=== PATIENT | female | born 1980 | race Caucasian/White ===

== ENCOUNTER 2018-05-18 19:14 | Emergency (ER) | payer OTHER, SELFPAY ==
--- NOTE | 2018-05-18 19:52 | ER ---
Nurse's Notes [facility] Name: Eliana Frost Age: 37 yrs Sex: Female : 1980 Arrival Date: 05/18/2018 Time: 19:17 Bed 12 Private MD: Diagnosis: Urinary tract infection, site not specified Presentation: 05/18 19:19 Presenting complaint: Patient states: burning with urination X1 week. Transition of ak1 care: patient was not received from another setting of care. Onset of symptoms is unknown. Risk Assessment: Do you want to hurt yourself or someone else? Patient reports no desire to harm self or others. Initial Sepsis Screen: Does the patient meet any 2 criteria? No. Patient's initial sepsis screen is negative. Does the patient have a suspected source of infection? No. Patient's initial sepsis screen is negative. Care prior to arrival: AZO OTC. 19:19 Method Of Arrival: Ambulatory ak1 19:19 Acuity: SALVADOR 4 ak1 Triage Assessment: 19:21 General: Appears uncomfortable, Behavior is calm, cooperative. 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 - Social history:: Smoking status: Patient uses tobacco products, smokes two packs cigarettes per day. Patient/guardian denies using alcohol. - Ebola Screening: : No symptoms or risks identified at this time. Screenin:29 Abuse screen: Denies threats or abuse. Denies injuries from another. Nutritional aj screening: No deficits noted. Tuberculosis screening: No symptoms or risk factors identified. Fall Risk None identified. Assessment: 19:29 General: Appears in no apparent distress. comfortable, Behavior is calm, cooperative, aj appropriate for age, Smells of Cigarette smoke. Pain: Denies pain. Neuro: Level of Consciousness is awake, alert, obeys commands, Oriented to person, place, time, situation, Appropriate for age. Respiratory: Airway is patent Respiratory effort is even, unlabored, Respiratory pattern is regular, symmetrical. : Reports burning with urination, urinary frequency. Derm: Skin is intact, is healthy with good turgor, Skin is pink, warm \T\ dry. normal. Vital Signs: 19:21 BP 123 / 84; Pulse 83; Resp 18; Temp 98.4(O); Pulse Ox 98% on R/A; Weight 54.43 kg (R); ak1 Height 5 ft. 2 in. (157.48 cm) (R); Pain 8/10; 19:21 Body Mass Index 21.95 (54.43 kg, 157.48 cm) ak1 ED Course: 19:17 Patient arrived in ED. am2 19:20 Triage completed. ak1 19:21 Arm band placed on Patient placed in an exam room, on a stretcher, Patient notified of co1 wait time. 19:23 Nolan Jones MD is Attending Physician. tw4 19:27 Selina Lambert, RN is Primary Nurse. aj 19:29 Patient has correct armband on for positive identification. aj 19:38 Urine Microscopic Only Sent. aj 19:38 Urine collected: clean catch specimen, cloudy. aj 19:55 No provider procedures requiring assistance completed. Patient did not have IV access aj during this emergency room visit. Administered Medications: No medications were administered Outcome: 19:52 Discharge ordered by . tw4 19:55 Discharged to home ambulatory. aj 19:55 Condition: good 19:55 Discharge instructions given to patient, family, Instructed on discharge instructions, follow up and referral plans. medication usage, Demonstrated understanding of instructions, follow-up care, medications, Prescriptions given X 2. 19:55 Patient left the ED. aj Signatures: Selina Lambert RN Delfina Rob RN RN ak1 [facility] Nolan Jones MD MD [email or web address] [[email or web address]]
--- NOTE | 2018-05-18 19:53 | EDPHYS ---
Physician Documentation [facility] Name: Eliana Frost Age: 37 yrs Sex: Female : 1980 Arrival Date: 05/18/2018 Time: 19:17 Bed 12 Private MD: ED Physician Nolan Jones HPI: 05/18 19:49 This 37 yrs old Female presents to ER via Ambulatory with complaints of tw4 Urinary Problem. 19:49 The patient presents with urinary symptoms. Modifying factors: The symptoms are tw4 alleviated by nothing, the symptoms are aggravated by nothing. Associated signs and symptoms: Pertinent positives: dysuria, urinary frequency. Severity of symptoms: last week, At their worst the symptoms were moderate, in the emergency department the symptoms are unchanged. The patient has not experienced similar symptoms in the past. 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 - Social history:: Smoking status: Patient uses tobacco products, smokes two packs cigarettes per day. Patient/guardian denies using alcohol. - Ebola Screening: : No symptoms or risks identified at this time. ROS: 19:49 Positive for urinary symptoms, urinary frequency. tw4 19:49 Eyes: Negative for injury, pain, redness, and discharge, Cardiovascular: Negative for chest pain, palpitations, and edema, Respiratory: Negative for shortness of breath, cough, wheezing, and pleuritic chest pain, Abdomen/GI: Negative for abdominal pain, nausea, vomiting, diarrhea, and constipation. 19:49 : Positive for burning with urination, difficulty urinating. Exam: 19:49 Constitutional: This is a well developed, well nourished patient who is awake, alert, tw4 and in no acute distress. Head/Face: Normocephalic, atraumatic. Chest/axilla: Normal chest wall appearance and motion. Nontender with no deformity. No lesions are appreciated. Cardiovascular: Regular rate and rhythm with a normal S1 and S2. No gallops, murmurs, or rubs. Normal PMI, no JVD. No pulse deficits. Respiratory: Lungs have equal breath sounds bilaterally, clear to auscultation and percussion. No rales, rhonchi or wheezes noted. No increased work of breathing, no retractions or nasal flaring. Abdomen/GI: Soft, non-tender, with normal bowel sounds. No distension or tympany. No guarding or rebound. No evidence of tenderness throughout. Back: No spinal tenderness. No costovertebral tenderness. Full range of motion. MS/ Extremity: Pulses equal, no cyanosis. Neurovascular intact. Full, normal range of motion. Neuro: Awake and alert, GCS 15, oriented to person, place, time, and situation. Cranial nerves II-XII grossly intact. Motor strength 5/5 in all extremities. Sensory grossly intact. Cerebellar exam normal. Normal gait. Vital Signs: 19:21 BP 123 / 84; Pulse 83; Resp 18; Temp 98.4(O); Pulse Ox 98% on R/A; Weight 54.43 kg (R); ak1 Height 5 ft. 2 in. (157.48 cm) (R); Pain 8/10; 19:21 Body Mass Index 21.95 (54.43 kg, 157.48 cm) ak1 MDM: 19:23 Patient medically screened. tw4 19:49 Data reviewed: vital signs, nurses notes. Counseling: I had a detailed discussion with [facility] the patient and/or guardian regarding: the historical points, exam findings, and any diagnostic results supporting the discharge/admit diagnosis. Special discussion: I discussed with the patient/guardian in detail that at this point there is no indication for admission to the hospital. It is understood, however, that if the symptoms persist or worsen the patient needs to return immediately for re-evaluation. 05/18 19:49 Order name: Urine Dipstick--Ancillary (enter results) fc 05/18 19:23 Order name: Urine Dipstick-Ancillary (obtain specimen); Complete Time: 19:40 tw4 05/18 19:23 Order name: Urine Test (obtain specimen); Complete Time: 19:40 tw4 05/18 19:49 Order name: Urine --Ancillary (enter results) fc Administered Medications: No medications were administered Disposition: 05/18/18 19:52 Discharged to Home. Impression: Urinary tract infection, site not specified. - Condition is Stable. - Discharge Instructions: Urinary Tract Infection, Adult. - Prescriptions for Pyridium 200 mg Oral Tablet - take 1 tablet by ORAL route every 8 hours for 3 days; 9 tablet. Macrobid 100 mg Oral Capsule - take 1 capsule by ORAL route every 12 hours for 10 days; 20 capsule. - Medication Reconciliation Form, Thank You Letter, Antibiotic Education, Prescription Opioid Use form. - Follow up: Private Physician; When: Upon discharge from the Emergency Department; Reason: Recheck today's complaints, Continuance of care. - Problem is new. - Symptoms have improved. Signatures: Dispatcher [employer] EDMS Selina Lambert RN RN Delfina Valenzuela RN RN ak1 Nolan Jones MD MD tw4 Corrections: (The following items were deleted from the chart) 19:55 19:52 05/18/2018 19:52 Discharged to Home. Impression: Urinary tract infection, site aj not specified. Condition is Stable. Forms are Medication Reconciliation Form, Thank You Letter, Antibiotic Education, Prescription Opioid Use. Follow up: Private Physician; When: Upon discharge from the Emergency Department; Reason: Recheck today's complaints, Continuance of care. Problem is new. Symptoms have improved. tw4
[2018-05-18 20:18] LABS: Urine Blood 3+ (NEG); Urine Glucose NEGATIVE (NEG); Urine Protein 3+ (NEG); Urine Specific Gravity 1.025 (1.005-1.030)
[2018-05-19 02:31] VITALS: BP 123/84; TEMP 98.4; O2SAT 98
== END 2018-05-18 19:55 | disposition home or self-care (01) ==
LOC: ER 19:14
DX: N39.0 Urinary tract infection, site not specified (principal); F17.210 Nicotine dependence, cigarettes, uncomplicated; Z88.5 Allergy status to narcotic agent
CPT/HCPCS: 81003; 81025; 99283

== ENCOUNTER 2018-06-18 12:29 | Emergency (ER) | payer SELFPAY ==
[2018-06-18] MEDS ORDERED: IPRATROPIUM BROM 0.5MG/2.5ML ONE ×2 (13:22→15:03)
[2018-06-18] MEDS ORDERED: ALBUTEROL 2.5 MG/3 ML NEB SOL ONE ×2 (13:22→15:03)
--- NOTE | 2018-06-18 14:22 | RAD REPORT ---
EXAM DESCRIPTION: Ana Caldwell And [facility]ald (2 Views)06/18/2018 2:02 pm CLINICAL HISTORY: Cough COMPARISON: 2017 FINDINGS: The lungs are hyperaerated. The lungs appear clear of acute infiltrate. The heart is normal size
[2018-06-18] MEDS ORDERED: predniSONE 20 MG TAB ONE (15:03)
--- NOTE | 2018-06-18 15:35 | ER ---
Nurse's Notes [facility] Name: Eliana Frost Age: 37 yrs Sex: Female : 1980 Arrival Date: 06/18/2018 Time: 12:30 Bed 17 Private MD: Diagnosis: Bronchitis, not specified as acute or chronic Presentation: 06/18 12:39 Acuity: SALVADOR 3 sg 16:34 Transition of care: patient was not received from another setting of care. Risk aj1 Assessment: Do you want to hurt yourself or someone else? Patient reports no desire to harm self or others. Initial Sepsis Screen: Does the patient meet any 2 criteria? No. Patient's initial sepsis screen is negative. Does the patient have a suspected source of infection? No. Patient's initial sepsis screen is negative. Care prior to arrival: None. 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 - Social history:: Smoking status: Patient uses tobacco products. - Ebola Screening: : Patient negative for fever greater than or equal to 101.5 degrees Fahrenheit, and additional compatible Ebola Virus Disease symptoms Patient denies exposure to infectious person Patient denies travel to an Ebola-affected area in the 21 days before illness onset No symptoms or risks identified at this time. Screenin:13 Abuse screen: Denies threats or abuse. Denies injuries from another. Nutritional aj1 screening: No deficits noted. Tuberculosis screening: No symptoms or risk factors identified. 16:35 Fall Risk None identified. aj1 Assessment: 13:15 General: Appears in no apparent distress. uncomfortable, Behavior is calm, cooperative, aj1 appropriate for age. Pain: Complains of pain in chest Pain does not radiate. Neuro: Level of Consciousness is awake, alert, obeys commands, Oriented to person, place, time, situation. Cardiovascular: Reports chest pain, shortness of breath, Patient's skin is warm and dry. Rhythm is sinus rhythm. Respiratory: Reports shortness of breath cough that is productive, Airway is patent Respiratory effort is even, unlabored, Respiratory pattern is regular, symmetrical, Breath sounds are coarse bilaterally. Breath sounds with wheezes bilaterally. the patient has mild shortness of breath. GI: No signs and/or symptoms were reported involving the gastrointestinal system. : No signs and/or symptoms were reported regarding the genitourinary system. EENT: No signs and/or symptoms were reported regarding the EENT system. Derm: No signs and/or symptoms reported regarding the dermatologic system. Skin is pink, warm \T\ dry. normal. Musculoskeletal: No signs and/or symptoms reported regarding the musculoskeletal system. Circulation, motion, and sensation intact. 14:30 Reassessment: Patient appears in no apparent distress at this time. No changes from aj1 previously documented assessment. Patient and/or family updated on plan of care and expected duration. Pain level reassessed. Patient is alert, oriented x 3, equal unlabored respirations, skin warm/dry/pink. 15:30 Reassessment: Patient appears in no apparent distress at this time. Patient and/or aj1 family updated on plan of care and expected duration. Pain level reassessed. Patient is alert, oriented x 3, equal unlabored respirations, skin warm/dry/pink. Patient states feeling better. Patient states symptoms have improved. 16:33 Reassessment: Patient appears in no apparent distress at this time. No changes from aj1 previously documented assessment. Patient and/or family updated on plan of care and expected duration. Pain level reassessed. Patient is alert, oriented x 3, equal unlabored respirations, skin warm/dry/pink. Vital Signs: 12:38 Pulse 98; Resp 26; Temp 98.3; Pulse Ox 97% on R/A; Weight 61.23 kg; Pain 6/10; sg 13:13 BP 102 / 70; Pulse 72; Resp 24; Pulse Ox 98% on R/A; aj1 14:30 BP 116 / 79; Pulse 74; Resp 14; Pulse Ox 99% on R/A; aj1 15:30 BP 106 / 71; Pulse 76; Resp 18; Pulse Ox 98% on R/A; aj1 16:34 BP 98 / 48; Pulse 73; Resp 18; Pulse Ox 100% on R/A; aj1 ED Course: 12:30 Patient arrived in ED. as 12:39 Triage completed. sg 12:39 Arm band placed on. sg 12:53 Sharonda Zhou FNP-C is [facility]. kb 12:53 Arturo Templeton MD is Attending Physician. kb 13:00 Ginger Antoine, RN is Primary Nurse. aj1 13:13 Patient has correct armband on for positive identification. Bed in low position. Call aj1 light in reach. Side rails up X 1. 13:13 No provider procedures requiring assistance completed. aj1 14:02 Chest Pa And Lat (2 Views) XRAY In Process Unspecified. EDMS 16:35 Patient did not have IV access during this emergency room visit. aj1 Administered Medications: 13:14 Drug: DuoNeb (3:1) (2.5 mg - 0.5 mg) 3 ml Route: Nebulizer; aj1 16:36 Follow up: Response: No adverse reaction aj1 14:54 Drug: DuoNeb (3:1) (2.5 mg - 0.5 mg) 3 ml Route: Nebulizer; aj1 16:36 Follow up: Response: No adverse reaction aj1 14:55 Drug: predniSONE 40 mg Route: PO; aj1 16:37 Follow up: Response: No adverse reaction aj1 Outcome: 15:34 Discharge ordered by MD. kb 16:39 Discharged to home ambulatory. aj1 16:39 Condition: good 16:39 Discharge instructions given to patient, Instructed on discharge instructions, follow up and referral plans. medication usage, Demonstrated understanding of instructions, follow-up care, medications, Prescriptions given X 2. 16:40 Patient left the ED. aj1 Signatures: Dispatcher [employer] EDID Sharonda Zhou FNP-C FNP-Ckb Ginger Antoine RN RN aj Josse Renteria RN RN sg Martinez, Amelia as Corrections: (The following items were deleted from the chart) 16:33 15:30 Reassessment: Patient appears in no apparent distress at this time. No changes aj1 from previously documented assessment. Patient and/or family updated on plan of care and expected duration. Pain level reassessed. Patient is alert, oriented x 3, equal unlabored respirations, skin warm/dry/pink. aj1
--- NOTE | 2018-06-18 15:35 | EDPHYS ---
Physician Documentation [facility] Name: Eliana Frost Age: 37 yrs Sex: Female : 1980 Arrival Date: 06/18/2018 Time: 12:30 Bed 17 Private MD: ED Physician Arturo Templeton HPI: 06/18 13:56 This 37 yrs old Female presents to ER via Unassigned with complaints of Flu kb Symptoms. 13:56 The patient or guardian reports cough, that is intermittent, described as mild, with no kb sputum, difficulty breathing, flu symptoms, low-grade fever, myalgias. Onset: The symptoms/episode began/occurred 5 day(s) ago. Severity of symptoms: At their worst the symptoms were moderate, in the emergency department the symptoms are unchanged. Modifying factors: The symptoms are alleviated by nothing, the symptoms are aggravated by nothing. Associated signs and symptoms: Pertinent positives: fever, rhinorrhea, sore throat. The patient has not experienced similar symptoms in the past. The patient has not recently seen a physician. 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 - Social history:: Smoking status: Patient uses tobacco products. - Ebola Screening: : Patient negative for fever greater than or equal to 101.5 degrees Fahrenheit, and additional compatible Ebola Virus Disease symptoms Patient denies exposure to infectious person Patient denies travel to an Ebola-affected area in the 21 days before illness onset No symptoms or risks identified at this time. ROS: 13:54 Neck: Negative for injury, pain, and swelling, Cardiovascular: Negative for chest pain, kb palpitations, and edema, Abdomen/GI: Negative for abdominal pain, nausea, vomiting, diarrhea, and constipation, Back: Negative for injury and pain, MS/Extremity: Negative for injury and deformity, Skin: Negative for injury, rash, and discoloration, Neuro: Negative for headache, weakness, numbness, tingling, and seizure. 13:54 Constitutional: Positive for fever, malaise, Negative for body aches, chills, fatigue, poor PO intake, weight loss. 13:54 ENT: Positive for rhinorrhea, sinus congestion, sore throat. 13:54 Respiratory: Positive for cough, shortness of breath, Negative for dyspnea on exertion, hemoptysis, orthopnea, pleurisy, sputum production, wheezing. Exam: 13:54 Constitutional: This is a well developed, well nourished patient who is awake, alert, kb and in no acute distress. Head/Face: Normocephalic, atraumatic. ENT: Nares patent. No nasal discharge, no septal abnormalities noted. Tympanic membranes are normal and external auditory canals are clear. Oropharynx with no redness, swelling, or masses, exudates, or evidence of obstruction, uvula midline. Mucous membranes moist. Neck: Trachea midline, no thyromegaly or masses palpated, and no cervical lymphadenopathy. Supple, full range of motion without nuchal rigidity, or vertebral point tenderness. No Meningismus. Chest/axilla: Normal chest wall appearance and motion. Nontender with no deformity. No lesions are appreciated. Cardiovascular: Regular rate and rhythm with a normal S1 and S2. No gallops, murmurs, or rubs. Normal PMI, no JVD. No pulse deficits. Abdomen/GI: Soft, non-tender, with normal bowel sounds. No distension or tympany. No guarding or rebound. No evidence of tenderness throughout. Skin: Warm, dry with normal turgor. Normal color with no rashes, no lesions, and no evidence of cellulitis. MS/ Extremity: Pulses equal, no cyanosis. Neurovascular intact. Full, normal range of motion. Neuro: Awake and alert, GCS 15, oriented to person, place, time, and situation. Cranial nerves II-XII grossly intact. Motor strength 5/5 in all extremities. Sensory grossly intact. Cerebellar exam normal. Normal gait. 13:54 Respiratory: mild respiratory distress is noted, Respirations: labored breathing, that is mild, Breath sounds: rhonchi, that are moderate, are located in both bases. Vital Signs: 12:38 Pulse 98; Resp 26; Temp 98.3; Pulse Ox 97% on R/A; Weight 61.23 kg; Pain 6/10; sg 13:13 BP 102 / 70; Pulse 72; Resp 24; Pulse Ox 98% on R/A; aj1 14:30 BP 116 / 79; Pulse 74; Resp 14; Pulse Ox 99% on R/A; aj1 15:30 BP 106 / 71; Pulse 76; Resp 18; Pulse Ox 98% on R/A; aj1 16:34 BP 98 / 48; Pulse 73; Resp 18; Pulse Ox 100% on R/A; aj1 MDM: 13:00 Patient medically screened. kb 13:54 Data reviewed: vital signs, nurses notes. Data interpreted: Pulse oximetry: on room air kb is 98 %. Interpretation: normal. 15:33 Counseling: I had a detailed discussion with the patient and/or guardian regarding: the kb historical points, exam findings, and any diagnostic results supporting the discharge/admit diagnosis, lab results, radiology results, the need for outpatient follow up, a family practitioner, to return to the emergency department if symptoms worsen or persist or if there are any questions or concerns that arise at home. 06/18 12:41 Order name: Flu; Complete Time: 13:50 sg 06/18 12:41 Order name: Strep; Complete Time: 13:31 sg 06/18 13:07 Order name: Chest Pa And Lat (2 Views) XRAY; Complete Time: 14:26 kb 06/18 13:30 Order name: Throat Culture EDMS Administered Medications: 13:14 Drug: DuoNeb (3:1) (2.5 mg - 0.5 mg) 3 ml Route: Nebulizer; aj1 16:36 Follow up: Response: No adverse reaction aj1 14:54 Drug: DuoNeb (3:1) (2.5 mg - 0.5 mg) 3 ml Route: Nebulizer; aj1 16:36 Follow up: Response: No adverse reaction aj1 14:55 Drug: predniSONE 40 mg Route: PO; aj1 16:37 Follow up: Response: No adverse reaction aj1 Disposition: 06/18/18 15:34 Discharged to Home. Impression: Bronchitis, not specified as acute or chronic. - Condition is Stable. - Discharge Instructions: Acute Bronchitis, [id number], Viral Respiratory Infection, [id number]. - Prescriptions for Prednisone 20 mg Oral Tablet - take 1 tablet by ORAL route once daily for 5 days; 5 tablet. Albuterol Sulfate 90 mcg/actuation - inhale 1-2 puff by INHALATION route every 4-6 hours; 1 Inhaler. - Medication Reconciliation Form, Thank You Letter, Antibiotic Education, Prescription Opioid Use form. - Follow up: Emergency Department; When: As needed; Reason: Worsening of condition. Follow up: Private Physician; When: 2 - 3 days; Reason: Recheck today's complaints, Continuance of care, Re-evaluation by your physician. Addendum: 06/19/2018 19:02 Co-signature as Attending Physician, Arturo Templeton MD I agree with the assessment and k dr plan of care. Signatures: Dispatcher [employer] EDPR Sharonda Zhou, ELIANE-C FOOD RUNNER-CkGinger Tompkins RN RN aj1 Josse Renteria RN RN sg Arturo Templeton MD MD kdr Corrections: (The following items were deleted from the chart) 06/18 16:40 15:34 06/18/2018 15:34 Discharged to Home. Impression: Bronchitis, not specified as aj1 acute or chronic. Condition is Stable. Forms are Medication Reconciliation Form, Thank You Letter, Antibiotic Education, Prescription Opioid Use. Follow up: Emergency Department; When: As needed; Reason: Worsening of condition. Follow up: Private Physician; When: 2 - 3 days; Reason: Recheck today's complaints, Continuance of care, Re-evaluation by your physician. kb
[2018-06-18 17:52] VITALS: TEMP 98.3
[2018-06-18 17:56] VITALS: BP 98/48; O2SAT 100
== END 2018-06-18 16:40 | disposition home or self-care (01) ==
LOC: ER 12:29
DX: J40 Bronchitis, not specified as acute or chronic (principal); Z72.0 Tobacco use; Z88.5 Allergy status to narcotic agent
CPT/HCPCS: 71046; 87070; 87081; 87804; 94640; 99284; J7512

== ENCOUNTER 2019-07-28 | Emergency (ER) | payer SELFPAY | END 2019-07-28 21:25 | disposition home or self-care (01) | CPT/HCPCS: 74176; 81003; 81015; 81025; 87086; 87088; 96374; 96375; 99284; J1100; J2175 ==

== ENCOUNTER 2019-09-14 19:07 | Emergency (ER) | payer SELFPAY ==
[2019-09-14 20:46] LABS: Urine Blood 1+ (NEG); Urine Glucose NEGATIVE (NEG); Urine Protein TRACE (NEG); Urine Specific Gravity 1.025 (1.005-1.030)
[2019-09-14] MEDS ORDERED: CEFTRIAXONE 1000 MG/VIAL ONE (21:16)
[2019-09-14] MEDS ORDERED: LIDOCAINE 1% MPF 2 ML AMPULE ONE (21:17)
[2019-09-14] MEDS ORDERED: WATER FOR INJ,STERILE 10 ML ONE (21:17)
[2019-09-14 21:49] VITALS: BP 106/81; TEMP 97.5; O2SAT 100
--- NOTE | 2019-09-20 13:45 | ER ---
Nurse's Notes [facility] Name: Eliana Frost Age: 38 yrs Sex: Female : 1980 Arrival Date: 09/14/2019 Time: 19:10 Bed 5 Private MD: Diagnosis: Urinary tract infection, site not specified Presentation: 09/13 19:16 Chief complaint: Patient states: left flank pain since yesterday and burning mg2 micturition since last week. Coronavirus screen: Proceed with normal triage. Patient denies a cough. Patient denies shortness of breath or difficulty breathing. Patient denies measured and/or subjective temperature greater than 100.4F prior to today's visit. Patient denies travel on a cruise ship or to a country the [facility] currently lists as an affected area. Patient denies contact with known and/or suspected case of COVID-19. Ebola Screen: No symptoms or risks identified at this time. Initial Sepsis Screen: Does the patient meet any 2 criteria? No. Patient's initial sepsis screen is negative. Does the patient have a suspected source of infection? No. Patient's initial sepsis screen is negative. Risk Assessment: Do you want to hurt yourself or someone else? Patient reports no desire to harm self or others. Onset of symptoms was August 2019. 19:16 Method Of Arrival: Ambulatory mg2 19:16 Acuity: SALVADOR 3 mg2 Historical: - Allergies: 19:19 Tramadol HCl; mg2 - Home Meds: 19:19 None [Active]; mg2 - PMHx: 19:19 Bipolar disorder; mg2 - PSHx: 19:19 Tubal ligation; mg2 - Immunization history:: Flu vaccine is not up to date. - Social history:: Smoking status: Patient reports the use of cigarette tobacco products, smokes one-half pack cigarettes per day, Patient/guardian denies using alcohol, street drugs, IV drugs. Screenin:32 Abuse screen: Denies threats or abuse. Nutritional screening: No deficits noted. ea Tuberculosis screening: No symptoms or risk factors identified. Fall Risk None identified. Assessment: 21:15 General: Appears in no apparent distress. Behavior is calm, cooperative, appropriate ea for age. Pain: Denies pain. Neuro: Level of Consciousness is awake, alert, obeys commands, Oriented to person, place, time, situation. Derm: Skin is pink, warm \T\ dry. 21:34 Reassessment: Patient and/or family updated on plan of care and expected duration. Pain ea level reassessed. Patient is alert, oriented x 3, equal unlabored respirations, skin warm/dry/pink. Discharge instruction given to patient, verbalized the understanding of instruction. Pt left ED ambulatory tolerating well. Vital Signs: 19:16 BP 106 / 81; Pulse 79; Resp 18; Temp 97.5; Pulse Ox 100% on R/A; Weight 63.5 kg; Height mg2 5 ft. 2 in. (157.48 cm); Pain 7/10; 19:16 Body Mass Index 25.61 (63.50 kg, 157.48 cm) mg2 ED Course: 19:10 Patient arrived in ED. cl3 19:18 Triage completed. mg2 19:19 Arm band placed on. mg2 20:38 Peyman Cardoso NP is PHCP. pm1 20:38 Khurram Wood MD is Attending Physician. pm1 21:04 Carlyle Yu, WADE is Primary Nurse. rv 21:32 Allergy band placed. Bed in low position. Call light in reach. Side rails up X2. ea 21:34 No provider procedures requiring assistance completed. Patient did not have IV access ea during this emergency room visit. Administered Medications: 21:10 Drug: Rocephin (cefTRIAXone) 1 grams Route: IM; Site: right gluteus; rv 21:35 Follow up: Response: No adverse reaction ea Outcome: 20:59 Discharge ordered by MD. pm1 21:35 Discharged to home ambulatory. ea 21:35 Condition: stable 21:35 Discharge instructions given to patient, Instructed on discharge instructions, follow up and referral plans. medication usage, Demonstrated understanding of instructions, follow-up care, medications, Prescriptions given X 2. 21:35 Patient left the ED. ea Signatures: Peyman Cardoso NP FOOD PRODUCT INSPECTOR pm1 Sylvia Farooq RN RN ea Gardose, Michele, RN RN [facility] Carlyle Yu RN RN rv Lewis, Charde cl3
--- NOTE | 2019-09-20 13:45 | EDPHYS ---
Physician Documentation [facility] Name: Eliana Frost Age: 38 yrs Sex: Female : 1980 Arrival Date: 09/14/2019 Time: 19:10 Bed 5 Private MD: ED Physician Khurram Wood HPI: 09/13 20:58 This 38 yrs old Female presents to ER via Ambulatory with complaints of pm1 Burning with urination. 20:58 The patient presents with flank pain, on the left, urinary symptoms, burning with pm1 urination. Onset: The symptoms/episode began/occurred yesterday. Modifying factors: The symptoms are alleviated by nothing, the symptoms are aggravated by urinating. Associated signs and symptoms: Pertinent negatives: fever, vaginal discharge, abdominal pain. Severity of symptoms: in the emergency department the symptoms are unchanged. The patient has experienced similar episodes in the past, a few times. The patient has not recently seen a physician. Historical: - Allergies: 19:19 Tramadol HCl; mg2 - Home Meds: 19:19 None [Active]; mg2 - PMHx: 19:19 Bipolar disorder; mg2 - PSHx: 19:19 Tubal ligation; mg2 - Immunization history:: Flu vaccine is not up to date. - Social history:: Smoking status: Patient reports the use of cigarette tobacco products, smokes one-half pack cigarettes per day, Patient/guardian denies using alcohol, street drugs, IV drugs. ROS: 20:58 Positive for flank pain, burning with urination. pm1 20:58 Constitutional: Negative for fever, chills, and weight loss, Cardiovascular: Negative for chest pain, palpitations, and edema, Respiratory: Negative for shortness of breath, cough, wheezing, and pleuritic chest pain, Abdomen/GI: Negative for abdominal pain, nausea, vomiting, diarrhea, and constipation. 20:58 Neuro: Negative for headache, weakness, numbness, tingling, and seizure. 20:58 Back: Positive for flank pain, on the left. Exam: 20:58 Constitutional: This is a well developed, well nourished patient who is awake, alert, pm1 and in no acute distress. Head/Face: Normocephalic, atraumatic. Chest/axilla: Normal chest wall appearance and motion. Nontender with no deformity. No lesions are appreciated. Cardiovascular: Regular rate and rhythm with a normal S1 and S2. No gallops, murmurs, or rubs. Normal PMI, no JVD. No pulse deficits. Respiratory: Lungs have equal breath sounds bilaterally, clear to auscultation and percussion. No rales, rhonchi or wheezes noted. No increased work of breathing, no retractions or nasal flaring. Abdomen/GI: Soft, non-tender, with normal bowel sounds. No distension or tympany. No guarding or rebound. No evidence of tenderness throughout. Back: No spinal tenderness. No costovertebral tenderness. Full range of motion. Skin: Warm, dry with normal turgor. Normal color with no rashes, no lesions, and no evidence of cellulitis. MS/ Extremity: Pulses equal, no cyanosis. Neurovascular intact. Full, normal range of motion. 20:58 Neuro: Exam negative for acute changes, Orientation: is normal, Motor: is normal, moves all fours, strength is normal, strength is 5/5 in all extremities. Vital Signs: 19:16 BP 106 / 81; Pulse 79; Resp 18; Temp 97.5; Pulse Ox 100% on R/A; Weight 63.5 kg; Height mg2 5 ft. 2 in. (157.48 cm); Pain 7/10; 19:16 Body Mass Index 25.61 (63.50 kg, 157.48 cm) mg2 MDM: 20:44 Patient medically screened. pm1 20:58 Data reviewed: vital signs. Data interpreted: Pulse oximetry: on room air is 100 %. pm1 Interpretation: normal. Counseling: I had a detailed discussion with the patient and/or guardian regarding: the historical points, exam findings, and any diagnostic results supporting the discharge/admit diagnosis, lab results. 09/13 19:48 Order name: Urine Dipstick--Ancillary (enter results) ar5 09/13 19:48 Order name: Urine --Ancillary (enter results) ar5 Administered Medications: 21:10 Drug: Rocephin (cefTRIAXone) 1 grams Route: IM; Site: right gluteus; rv 21:35 Follow up: Response: No adverse reaction ea Disposition: 09/14 06:51 Co-signature as Attending Physician, Khurram Wood MD. ma2 Disposition: 09/14/19 20:59 Discharged to Home. Impression: Urinary tract infection, site not specified. - Condition is Stable. - Discharge Instructions: Urinary Tract Infection, Adult. - Prescriptions for Tylenol- Codeine #3 300-30 mg Oral Tablet - take 2 tablets by ORAL route every 6 hours As needed; 20 tablet. Bactrim DS 800- 160 mg Oral Tablet - take 1 tablet by ORAL route every 12 hours for 10 days; 20 tablet. - Medication Reconciliation Form, Thank You Letter, Antibiotic Education, Prescription Opioid Use form. - Follow up: Emergency Department; When: As needed; Reason: Worsening of condition. Follow up: Private Physician; When: 2 - 3 days; Reason: Recheck today's complaints, Continuance of care, Re-evaluation by your physician. - Problem is new. - Symptoms have improved. Signatures: Dispatcher [employer] EDMS Peyman Cardoso, VINOD VEHICLE DISMANTLER pm1 Sylvia Farooq RN RN ea Alzahri, Mohammad, MD MD ma2 Brandt Sierra RN RN [facility] Carlyle Yu RN RN rv Corrections: (The following items were deleted from the chart) 09/13 21:35 20:59 09/14/2019 20:59 Discharged to Home. Impression: Urinary tract infection, site ea not specified. Condition is Stable. Forms are Medication Reconciliation Form, Thank You Letter, Antibiotic Education, Prescription Opioid Use. Follow up: Emergency Department; When: As needed; Reason: Worsening of condition. Follow up: Private Physician; When: 2 - 3 days; Reason: Recheck today's complaints, Continuance of care, Re-evaluation by your physician. Problem is new. Symptoms have improved. pm1
== END 2019-09-14 21:35 | disposition home or self-care (01) ==
LOC: ER 19:07
DX: N39.0 Urinary tract infection, site not specified (principal); F17.210 Nicotine dependence, cigarettes, uncomplicated; Z88.5 Allergy status to narcotic agent
CPT/HCPCS: 81003; 81025; 96372; 99283; J2001

== ENCOUNTER 2024-03-20 23:29 | Emergency (ER) | payer SELFPAY ==
--- OUTSIDE RECORDS SUMMARY | 2024-03-20 23:31 | XMS REPORT | Continuity of Care Document ---
Author Name Unknown Address [address] [place] [address] [facility] Address [address] [place] [address] Care Team Providers Care Terminal Clerk Name Role Phone Toney Abraham Attending Clinician Unavailable SWETHA FINNEGAN Attending Clinician Winter vailable Physician, No Primary or Family Admitting Clinic jin Unavailable Payers Payer Name Policy Type Policy Number Effective Date Expirati on Date Source Allergies, Adverse Reactions, Alerts Allergy Name Allergy Type Status Severity Reaction(s) Onset Date Inactive Date Treating Clinician Comments Source No Known Allergie s DA Active U 10-02 00:00: 00 [facility] Encounters Start Date/Time End Date/Time Encounter Type Admission Type Attending Clinicians Care Facility Care Department Encounter ID Source 2022-10-07 23:44:00 2022-10-08 01:20:00 Emergency Toney Wayne [facility] [id number] 03 [facility] 2022-09-16 20:29:00 2022-09-16 22:16:00 Emergency E SWETHA FINNEGAN [facility] [id number] [facility] Notes Date/Time Note Provider Source 2022-10-08 00:22:00 [facility] EMERGENCY PROVIDER REPORT REPORT#:[id number] REPORT STATUS: Signed DATE:10/08/22 TIME:21 PATIENT: NGA ROBERSON UNIT #: [id number] ROOM/BED: : 81 AGE: 41 SEX: F PCP PHYS: No Primary or Family Physician SERVICE AUTHOR: Toney Abraham MD * ALL edits or amendments must be made on the electronic/computer document * HPI-General Illness Free Text HPI Notes Free Text HPI Notes Right foot dorsum notes rash that measures 3 cm x 2 centimeters, duration of 1 week. Overlying rash is honey colored lesions General Initial Greet Date/Time 10/08/22 0022 Presentation Chief Complaint __ (rash) Review of Systems ROS Statements All systems rev neg except as marked. Past Medical History - Adult Stated Complaint SKIN INFECTION RT FOOT AREA Allergies Coded Allergies: No Known Allergies (10/02/16) Calculated Suicide Risk (nurs) No risk Smoking status for patients 13 years old or older: Unknown,if ever smoked Physical Exam Vital Signs Vital Signs First Documented: Result Date Time Pulse Ox 100 06/20 0000 B/P 118/73 06/20 0000 B/P Mean 88 06/20 0000 O2 Delivery Room air 06/20 0000 Temp 36.7 06/20 0000 Pulse 80 06/20 0000 Resp 18 06/20 0000 Last Documented: Result Date Time Pulse Ox 100 06/20 0000 B/P 118/73 06/20 0000 B/P Mean 88 06/20 0000 O2 Delivery Room air 06/20 0000 Temp 36.7 06/20 0000 Pulse 80 06/20 0000 Resp 18 06/20 0000 PHYSICAL EXAM: Vital Signs Reviewed. General: Awake, Alert Neuro: No gross deficits HEENT: Normocephalic Cardiovascular: RRR Respiratory: No Stridor, Breathing Comfortably, Lungs CTAB Abdomen: Non-Tender, Non-Distended Extremities: No gross deformities. Skin: 2 x 3 cm honey colored lesions overlying an erythematous base along the right dorsum of foot Review of Vital Signs Reviewed Re-Evaluation MDM Free Text MDM Notes Additional Text Exam consistent with impetigo/cellulitis will treat with antibiotic ED Course Medication(s) Ordered Medication(s) Ordered: Anti-Infective Agents Sig/Clementina Start time Last Medication Dose Route Stop Time Status Admin Cephalexin 500 MG X1ED STA 10/08 0026 DC 10/08 PO 10/08 0027 0105 Patient Discharge Departure Vital Signs/Condition Vital Signs First Documented: Result Date Time Pulse Ox 100 / 0000 B/P 118/73 / 0000 B/P Mean 88 / 0000 O2 Delivery Room air 10/08 0000 Temp 36.7 10/08 0000 Pulse 80 / 0000 Resp 18 10/08 0000 Last Documented: Result Date Time Pulse Ox 100 10/08 0000 B/P 118/73 10/08 0000 B/P Mean 88 10/08 0000 O2 Delivery Room air 10/08 0000 Temp 36.7 10/08 0000 Pulse 80 / 0000 Resp 18 10/08 0000 All vital signs available at the time of this entry have been reviewed. Clinical Impression Clinical Impression Primary Impression: Impetigo Time of Impression 0027 Disposition Decision Discharge )( Discharged to Home Yes )( Time 0027 )( Date 10/08/22 Discharge/Care Plan (Auto) Prescriptions Current Visit Scripts CEPHALEXIN (KEFLEX) 500 MG PO Q8H 10 Days #30 CAPS MUPIROCIN (BACTROBAN 2%) 1 APPLIC TOPICAL TID 10 Days #22 GM APPLY TO AFFECTED AREA. Patient Instructions ED Impetigo Additional Instructions Please follow up with primary care doctor in 2-3 days, return if any new concerning symptoms at [address] [facility] #: [id number] END OF REPORT [facility]
--- NOTE | 2024-03-21 01:32 | EDPHYS ---
Physician Documentation [facility] Name: Eliana Frost Age: 43 yrs Sex: Female : 1980 Arrival Date: 03/20/2024 Time: 23:29 Bed 13 Private MD: ED Physician Brandon Graves HPI: 03/21 01:21 This 43 yrs old Female presents to ER via Ambulatory with complaints of sp4 Finger Injury. 18:48 43-year-old female presents with complaint of left index finger pain and swelling sp4 seeded with recent paper cut 4 days ago.. 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 - Infectious Disease History:: Denies. - Social history:: Smoking status: Patient reports the use of cigarette tobacco products, smokes one pack cigarettes per day. - Family history:: not pertinent. ROS: 18:48 Constitutional: Negative for fever, chills, and weight loss, positive left index sp4 finger pain tenderness with swelling 18:48 All other systems are negative, Exam: 18:48 Constitutional: This is a well developed, well nourished patient who is awake, alert, sp4 and in no acute distress. Head/Face: Normocephalic, atraumatic. Eyes: Pupils equal round and reactive to light, extra-ocular motions intact. Lids and lashes normal. Conjunctiva and sclera are not injected. Cornea within normal limits. Periorbital areas with no swelling, redness, or edema. ENT: Nares patent. No nasal discharge, no septal abnormalities noted. Tympanic membranes are normal and external auditory canals are clear. Oropharynx with no redness, swelling, or masses, exudates, or evidence of obstruction, uvula midline. Mucous membranes moist. Neck: Trachea midline, no thyromegaly or masses palpated, and no cervical lymphadenopathy. Supple, full range of motion without nuchal rigidity, or vertebral point tenderness. Chest/axilla: Normal chest wall appearance and motion. Nontender with no deformity. No lesions are appreciated. Cardiovascular: Regular rate and rhythm with a normal S1 and S2. No gallops, murmurs, or rubs. Normal PMI, no JVD. No pulse deficits. Respiratory: Lungs have equal breath sounds bilaterally, clear to auscultation and percussion. No rales, rhonchi or wheezes noted. No increased work of breathing, no retractions or nasal flaring. Abdomen/GI: Soft, with normal bowel sounds. No distension or tympany. No guarding or rebound. No evidence of tenderness throughout. Back: No spinal tenderness. No costovertebral tenderness. Skin: Warm, dry with normal turgor. Normal color with no rashes, no lesions, and no evidence of cellulitis. MS/ Extremity: Pulses equal, no cyanosis. Neurovascular intact. Full, normal range of motion. Neuro: Awake and alert, GCS 15, oriented to person, place, time, and situation. Cranial nerves II-XII grossly intact. Motor strength 5/5 in all extremities. Sensory grossly intact. Psych: Awake, alert, with orientation to person, place and time. Behavior, mood, and affect are within normal limits Vital Signs: 00:59 BP 96 / 69; Pulse 66; Resp 16; Temp 98.3; Pulse Ox 99% on R/A; Weight 63.5 kg; dd2 02:35 BP 102 / 72; Pulse 68; Resp 16; Temp 98.1; Pulse Ox 99% on R/A; dd2 Analilia Coma Score: 01:07 Eye Response: spontaneous(4). Motor Response: obeys commands(6). Verbal Response: dd2 oriented(5). Total: 15. 18:48 Eye Response: spontaneous(4). Motor Response: obeys commands(6). Verbal Response: sp4 oriented(5). Total: 15. MDM: 00:53 Medical Screening Exam initiated sp4 01:21 ED course: Clinical Indication: Bed:; left hand pain Comparison: None FINDINGS: The 3 sp4 views of the left hand show normal alignment without acute fractures or dislocations. The digit and thumb interphalangeal joints are unremarkable. The metacarpophalangeal joints are unremarkable. The carpometacarpal joint regions are unremarkable. There are no radiopaque foreign bodies in the soft tissues. There is no soft tissue swelling. The visualized wrist region is grossly unremarkable. If there is further concern, recommend follow-up radiographs or MRI for complete assessment. IMPRESSION: 1. No acute fractures or dislocation of the left hand. . 18:50 Differential diagnosis: extremity fracture, finger pain and swelling, cellulitis, sp4 tendonitis. Data reviewed: vital signs, nurses notes, radiologic studies, plain films. ED course: Patient may have a early infection of the soft tissues left index finger secondary to paper cut 4 days ago will cover with cephalexin and Bactrim for the next 10 days.. 03/20 23:44 Order name: Hand Left 3 View XRAY sp4 Administered Medications: 02:33 Drug: Cephalexin PO 500 mg PO once Route: PO; dd2 02:34 Follow up: Response: Medication administered at discharge. dd2 02:33 Drug: Trimethoprim-Sulfamethoxazole PO (160 mg-800 mg (DS) 1 tablet PO once Route: PO; dd2 02:34 Follow up: Response: Medication administered at discharge. dd2 02:33 Drug: Promethazine PO 25 mg PO once Route: PO; dd2 02:34 Follow up: Response: Medication administered at discharge. dd2 02:34 Drug: HYDROcodone-acetaminophen PO 5 mg-325 mg 2 tabs PO once Route: PO; dd2 02:34 Follow up: Response: Medication administered at discharge. dd2 02:34 Drug: Ibuprofen PO 800 mg PO once Route: PO; dd2 02:34 Follow up: Response: Medication administered at discharge. dd2 Disposition: 18:49 Chart complete. sp4 Disposition Summary: 03/21/24 01:31 Discharge Ordered Notes: Location: Home sp4 Problem: new sp4 Symptoms: have improved sp4 Condition: Stable sp4 Diagnosis - Pain in left hand sp4 - Pain in hand and fingers sp4 - Acute left index finger swelling and cellulitis , Acute Paper cut sp4 Followup: sp4 - With: Private Physician - When: 7 - 10 days - Reason: Recheck today's complaints Discharge Instructions: - Discharge Summary Sheet sp4 - Cellulitis, Adult, [id number] sp4 Forms: - Patient Portal Instructions sp4 Prescriptions: - naproxen 500 mg Oral tablet - take 1 tablet ORAL route every 12 hours PRN pain; 30 tablet; Refills: 0, sp4 Product Selection Permitted - Cephalexin 500 mg Oral Capsule - take 1 capsule ORAL route every 6 hours for 10 days; 40 capsule; Refills: 0, sp4 Product Selection Permitted - Bactrim DS 800-160 mg Oral Tablet - take 1 tablet ORAL route every 12 hours for 10 days; 20 tablet; Refills: 0, sp4 Product Selection Permitted Signatures: Brandon Christensen MD MD sp4 CHARITO RAMIREZ RN RN dd2
--- NOTE | 2024-03-21 01:32 | ER ---
Nurse's Notes [facility] Name: Eliana Frost Age: 43 yrs Sex: Female : 1980 Arrival Date: 03/20/2024 Time: 23:29 Bed 13 Private MD: Diagnosis: Pain in left hand;Pain in hand and fingers;Acute left index finger swelling and cellulitis , Acute Paper cut Presentation: 03/21 00:59 Chief complaint: Patient states: Lt 2nd finger pain and swelling x3 days. Pt denies dd2 hitting finger or hand on anything. Coronavirus screen: At this time, the client does not indicate any symptoms associated with coronavirus-19. Ebola Screen: No symptoms or risks identified at this time. Initial Sepsis Screen: Does the patient meet any 2 criteria? No. Patient's initial sepsis screen is negative. Does the patient have a suspected source of infection? No. Patient's initial sepsis screen is negative. Risk Assessment: Do you want to hurt yourself or someone else? Patient reports no desire to harm self or others. Onset of symptoms is unknown. 00:59 Method Of Arrival: Ambulatory dd2 00:59 Acuity: [place] 3 dd2 Triage Assessment: 01:03 General: Appears in no apparent distress. Behavior is calm, cooperative, appropriate dd2 for age. Pain: Complains of pain in palmar aspect of distal phalanx of left index finger, palmar aspect of middle phalanx of left index finger and palmar aspect of proximal phalanx of left index finger Pain does not radiate. Pain currently is 8 out of 10 on a pain scale. EENT: No deficits noted. No signs and/or symptoms were reported regarding the EENT system. Neuro: No deficits noted. Level of Consciousness is awake, alert, obeys commands, Oriented to person, place, time, situation, Appropriate for age. Cardiovascular: No deficits noted. Patient's skin is warm and dry. Respiratory: Airway is patent Respiratory effort is even, unlabored, Respiratory pattern is regular, symmetrical. GI: No deficits noted. No signs and/or symptoms were reported involving the gastrointestinal system. Abdomen is non-distended, Abd is soft and non tender. : No deficits noted. No signs and/or symptoms were reported regarding the genitourinary system. Derm: Skin temperature is warm Edema to lt 2nd finger. Musculoskeletal: Circulation, motion, and sensation intact. Range of motion: limited in DIP of left index finger, PIP of left index finger and MCP of left index finger Swelling present in palmar aspect of distal phalanx of left index finger, palmar aspect of middle phalanx of left index finger and palmar aspect of proximal phalanx of left index finger. Injury Description: pt denies injury. 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 - Infectious Disease History:: Denies. - Social history:: Smoking status: Patient reports the use of cigarette tobacco products, smokes one pack cigarettes per day. - Family history:: not pertinent. Screenin:07 [facility] ED Fall Risk Assessment (Adult) History of falling in the last 3 months, dd2 including since admission No falls in past 3 months (0 pts) Confusion or Disorientation No (0 pts) Intoxicated or Sedated No (0 pts) Impaired Gait No (0 pts) Mobility Assist Device Used No (0 pt) Altered Elimination No (0 pt) Score/Fall Risk Level 0 - 2 = Low Risk Oriented to surroundings, Maintained a safe environment, Educated pt \T\ family on fall prevention, incl call for assistance when getting out of bed, Assessed \T\ reinforced patient's understanding of fall precautions, Hourly rounding (assess needs \T\ fall precautionary measures) done. Abuse screen: Denies threats or abuse. Nutritional screening: No deficits noted. Tuberculosis screening: No symptoms or risk factors identified. Assessment: 01:07 Reassessment: SEE TRIAGE ASSESSMENT FOR FULL ASSESSMENT. dd2 Vital Signs: 00:59 BP 96 / 69; Pulse 66; Resp 16; Temp 98.3; Pulse Ox 99% on R/A; Weight 63.5 kg; dd2 02:35 BP 102 / 72; Pulse 68; Resp 16; Temp 98.1; Pulse Ox 99% on R/A; dd2 [place] Coma Score: 01:07 Eye Response: spontaneous(4). Motor Response: obeys commands(6). Verbal Response: dd2 oriented(5). Total: 15. 18:48 Eye Response: spontaneous(4). Motor Response: obeys commands(6). Verbal Response: sp4 oriented(5). Total: 15. ED Course: 03/20 23:30 Patient arrived in ED. [id number] 23:30 Brandon Graves MD is Attending Physician. sp4 03/21 00:17 Hand Left 3 View XRAY In Process Unspecified. EDMS 00:59 CHARITO RAMIREZ, WADE is Primary Nurse. dd2 01:03 Triage completed. dd2 01:03 Arm band placed on right wrist. Patient placed in an exam room, on a stretcher, on dd2 pulse oximetry. 01:07 Patient has correct armband on for positive identification. Bed in low position. Call dd2 light in reach. Side rails up X 1. Provided Education on: CALL LIGHT, RADIOLOGY, MEDICATIONS. Client placed on continuous cardiac and pulse oximetry monitoring. NIBP monitoring applied. Door closed. Noise minimized. Warm blanket given. Pillow given. Verbal reassurance given. 01:07 No provider procedures requiring assistance completed. Patient maintains SpO2 dd2 saturation greater than 95% on room air. 02:35 Patient did not have IV access during this emergency room visit. dd2 Administered Medications: 02:33 Drug: Cephalexin PO 500 mg PO once Route: PO; dd2 02:34 Follow up: Response: Medication administered at discharge. dd2 02:33 Drug: Trimethoprim-Sulfamethoxazole PO (160 mg-800 mg (DS) 1 tablet PO once Route: PO; dd2 02:34 Follow up: Response: Medication administered at discharge. dd2 02:33 Drug: Promethazine PO 25 mg PO once Route: PO; dd2 02:34 Follow up: Response: Medication administered at discharge. dd2 02:34 Drug: HYDROcodone-acetaminophen PO 5 mg-325 mg 2 tabs PO once Route: PO; dd2 02:34 Follow up: Response: Medication administered at discharge. dd2 02:34 Drug: Ibuprofen PO 800 mg PO once Route: PO; dd2 02:34 Follow up: Response: Medication administered at discharge. dd2 Medication: 01:07 VIS not applicable for this client. dd2 Outcome: 01:31 Discharge ordered by . sp4 02:35 Discharged to home ambulatory, dd2 02:35 Condition: stable 02:35 Discharge instructions given to patient, Instructed on discharge instructions, follow up and referral plans. medication usage, Demonstrated understanding of instructions, follow-up care, medications, Prescriptions given X 3, 02:36 Patient left the ED. dd2 Signatures: Dispatcher [employer] EDLaurita [email or web address] Brandon Graves MD MD sp4 CHARITO RAMIREZ RN RN dd2
[2024-03-21] MEDS ORDERED: IBUPROFEN 400 MG TAB ONE (02:26)
[2024-03-21] MEDS ORDERED: CEPHALEXIN 250 MG CAP ONE (02:26)
[2024-03-21] MEDS ORDERED: PROMETHAZINE 25 MG TABLET ONE (02:26)
[2024-03-21] MEDS ORDERED: SMZ./TMP. 800/160 MG TABLET ONE (02:26)
[2024-03-21] MEDS ORDERED: HYDROCODONE/APAP 5/325 MG TAB ONE (02:27)
[2024-03-21 05:35] VITALS: O2SAT 99
[2024-03-21 05:36] VITALS: BP 102/72; TEMP 98.1
--- NOTE | 2024-03-21 06:38 | RAD REPORT ---
Clinical Indication: Bed:; left hand pain Comparison: None FINDINGS: The 3 views of the left hand show normal alignment without acute fractures or dislocations. The digit and thumb interphalangeal joints are unremarkable. The metacarpophalangeal joints are unremarkable. The carpometacarpal joint regions are unremarkable. There are no radiopaque foreign bodies in the soft tissues. There is no soft tissue swelling. The visualized wrist region is grossly unremarkable. If there is further concern, recommend follow-up radiographs or MRI for complete assessment. IMPRESSION: 1. No acute fractures or dislocation of the left hand. Electronically signed by: Wiley Jc MD 03/21/2024 01:04 AM [facility] Due to temporary technical issues with the PACS/[employer] reporting system, reports are being raulito d by the in-house radiologist without review as a courtesy to ensure prompt reporting the interpreting radiologist is fully responsible for the content of the report. Transcribed Date/Time: 03/21/2024 6:37 AM
== END 2024-03-21 02:36 | disposition home or self-care (01) ==
LOC: ER 23:29
DX: L03.012 Cellulitis of left finger (principal); M79.642 Pain in left hand; W45.8XXA Other foreign body or object entering through skin, initial encounter
CPT/HCPCS: 99284; Q0169